=== PATIENT | female | born 1980 | race Asian ===

== ENCOUNTER 2021-08-22 08:33 | Emergency (ER) | payer OTHER, SELFPAY ==
--- NOTE | ~2021-08-22 | CT_ITS ---
EXAMINATION: CT HEAD WITHOUT CONTRAST CLINICAL INFORMATION: Headache after trauma COMPARISON: None TECHNIQUE: Contiguous axial imaging was performed from the skull base to vertex without intravenous administration of contrast. This CT examination was performed using dose optimization techniques as appropriate, variously including the following: *Automated exposure control *Adjustment of mA and/or kV according to patient size (this includes techniques or standardized protocols for targeted exams where dose is matched to indication/reason for exam; i.e. extremities or head) *Use of iterative reconstruction technique DLP: 694 mGy-cm FINDINGS: There is no evidence of acute intracranial hemorrhage or territorial infarction. No abnormal mass effect or midline shift is seen. Hernandez to white matter differentiation is well preserved. No extra-axial fluid collections are identified. The ventricles are normal in size. There is no abnormal attenuation within the brain parenchyma. The osseous structures and soft tissues are normal. The mastoid air cells and visualized portions of the paranasal sinuses are well aerated. CT/CT head/brain wo con IMPRESSION: No acute intracranial pathology.
--- NOTE | ~2021-08-22 | XR_ITS ---
EXAMINATION: XR SHOULDER, RIGHT CLINICAL INFORMATION: Right shoulder pain status post injury. COMPARISON: None TECHNIQUE: AP external rotation, Grashey, scapular Y, and axillary views of the right shoulder. FINDINGS: The bones and soft tissues are normal. No fracture. Glenohumeral and acromioclavicular alignment is anatomic with normal joint space. No abnormal soft tissue calcifications. XR/XR shoulder RT min 2V IMPRESSION: Unremarkable right shoulder.
--- NOTE | 2021-08-22 08:56 | ED_ITS ---
HPI - Head Injury General Chief complaint: Head Injury Stated complaint: Shoulder inj/Head inj- work inj Time Seen by Provider: 08/22/21 08:46 Source: patient Mode of arrival: ambulatory Limitations: no limitations History of Present Illness HPI Narrative: 41 y/o female with no significant medical history presents to the ER with headache and shoulder pain after an injury at work. She works as an audiovisual aids technician and was under an exam table to plug it in when the table collapsed and fell onto her right shoulder and head. She did not lose consciousness. Afterward she felt lightheaded when she stood up which quickly resolved. She is not on anticoagulation. She denies any laceration or palpable lump on her head but has a headache on the right side that radiates down into her shoulder. She is able to move her right shoulder and arm without difficulty but it is slightly uncomfortable. Complaint: head injury Onset (ago): minute(s) Mechanism of Injury: work related injury Place: work Loss of Consciousness: no Location of injury: temporal Severity: mild Severity scale (1-10): 3 Quality: aching Radiation: neck and RUE Other Injuries: upper extremity Associated symptoms: denies other symptoms Related Data Allergies Allergy/AdvReac Type Severity Reaction Status Date / Time Unable to Assess Allergy Verified 08/22/21 08:54 Review of Systems Review of Systems: Constitutional: No Fever, No Chills ENT/Mouth: No sore throat, No Rhinorrhea Eyes: No Eye Pain, No vision changes Cardiovascular: No Chest Pain, No SOB Gastrointestinal: No Nausea, No Vomiting, No Diarrhea, No abdominal Pain Musculoskeletal: + joint pain, No Myalgias Skin: No Skin Lesions, No rash Neuro: No Weakness, No Numbness, + Dizziness +Headache Psych: +Anxiety/Panic, No Depression Heme/Lymph: No Bruising, No Lymphadenopathy PMFSH Social History Social History Advance Directives: No Advance Directives Information Provided: No Patient : No Physical Exam Vital Signs: Vital Signs: Last Vital Signs Temp 98.4 F 08/22/21 08:57 Pulse 69 08/22/21 08:57 Resp 18 08/22/21 08:57 BP 120/82 08/22/21 08:57 Pulse Ox 100 08/22/21 08:57 BMI result Body Mass Index 29.5 Appearance: Alert. Oriented X3. No acute distress. Head: atraumatic, normocephalic Eyes: Pupils equal, round and reactive to light. ENT: Pharynx normal. Normal EACs and TMs bilaterally. Neck: Normal inspection. Neck supple. CVS: Normal heart rate and rhythm. Pulses normal. Respiratory: No respiratory distress. Breath sounds normal. Skin: Skin warm and dry. Normal skin color. Normal skin turgor. No rashes. Extremities: Normal inspection. Normal ROM of the right arm and shoulder. Mild tenderness to medial scapula. No lower extremity edema. Neuro: Oriented X 3. No motor deficit. No sensory deficit. Normal speech. Steady gait. Nonfocal. Course Course Course Narrative: 41-year-old healthy female presenting to the ER with right-sided headache and right shoulder pain after a mental examination table fell onto her when she was underneath it trying to plug it in. She has no evidence of traumatic injury but reports some lightheadedness when standing. She is worried about intracranial hemorrhage. She has a nonfocal neurological exam. Shared decision making have of the patient and she would like to proceed with a CT scan of her head to rule out ICH. Will also get x-ray of her shoulder to rule out traumatic injury. Reevaluation(s) Reevaluation #1: Imaging is normal. Results discussed with patient. She is stable for discharge home with outpatient follow up as needed. Work note provided per request. Critical Care Time Critical Care Time Critical Care Time: No Discharge Plan Discharge Clinical Impression: Head injury Patient Disposition: Home, Self-Care Instructions: Head Injury (ED) Additional Instructions: Your CT scan today was normal. Your shoulder x-ray was normal. Recommend Tylenol and/or Motrin as needed for pain. Rest. Use ice to the area several times per day as needed. Follow up with your doctor as needed. If you develop new or worsening symptoms call 911 or come back to the ER for further evaluation. Stand Alone Forms: Work/School Release
[2021-08-22 08:57] VITALS: BP 120/82; PULSE 69; RESP 18; TEMP 36.9; O2SAT 100; BMI 29.5
[2021-08-22] MEDS: Acetaminophen 325 MG TABLET 975 MG PO (09:17)
[2021-08-22] MEDS: Lidocaine 4 % Patch ADH..PATCH 1 PATCH TRANSDERMA (09:18)
[2021-08-22 11:47] VITALS: BP 120/69; PULSE 59; RESP 12; TEMP 36.8; O2SAT 100
== END 2021-08-22 12:27 | disposition home or self-care (01) ==
PROVIDERS: Emergency Provider Emergency Medicine; PCP Internal Medicine
DX: S09.90XA Unspecified injury of head, initial encounter (principal); M25.511 Pain in right shoulder; W20.8XXA Other cause of strike by thrown, projected or falling object, initial encounter; Y93.9 Activity, unspecified; Y92.89 Other specified places as the place of occurrence of the external cause; Y99.0 Civilian activity done for income or pay
CPT/HCPCS: 70450; 73030; 99284